=== PATIENT | male | born 1985 | race Caucasian/White ===

== ENCOUNTER 2021-05-29 10:14 | Emergency (ER) | payer OTHER, SELFPAY ==
[2021-05-29 10:26] VITALS: BP 113/77; PULSE 62; RESP 14; TEMP 36.9; O2SAT 99
--- NOTE | 2021-05-29 11:01 | ED.NAVMDI ---
HPI - Nausea/Vomiting/Diarrhea General Chief complaint: Nausea/Vomiting/Diarrhea Stated complaint: Vomiting/Diarrhea Source: patient and RN notes reviewed Mode of arrival: ambulatory Limitations: no limitations History of Present Illness HPI Narrative: Kp is a 35-year-old male patient who ambulated into the [facility]. Patient states he vomited in the middle of the night and has had diarrhea one time. Patient states there is no one else sick in his family. Patient denies any fever, abdominal pain, or any other symptoms. Patient states his work is requiring a note to return. Related Data Home Medications Medication Instructions Recorded Confirmed No Home Medications 05/29/21 05/29/21 Allergies Allergy/AdvReac Type Severity Reaction Status Date / Time No Known Allergies Allergy Verified 05/29/21 10:49 Review of Systems Review of Systems: CONSTITUTIONAL: Denies body aches, fever, chills, or sweats. EYES: Denies visual changes, redness, or discharge. ENT: Denies rhinorrhea, congestion, sore throat, or otalgia. CARDIOVASCULAR: Denies chest pain, palpitations, or edema. RESPIRATORY: Denies cough or dyspnea. GASTROINTESTINAL: Denies abdominal pain, +nausea,+ vomiting, + diarrhea. GENITOURINARY: Denies dysuria or hematuria. SKIN: Denies rash, itching, or wounds. MUSCULOSKELETAL: Denies back pain, joint pain, or myalgia. NEUROLOGIC: Denies headache, numbness, tingling, or weakness. PSYCH: Denies depression or anxiety. All systems reviewed & are unremarkable except as noted in HPI and below PMFSH Comments At time of signature, I have reviewed and agree with nursing past medical, surgical, social and family history unless otherwise noted. Please see nursing chart for further information. There is no relevant family history pertinent to the presenting complaint Exam Narrative: GENERAL: Well-appearing, well-nourished, and in no acute distress. HEAD: Normocephalic, atraumatic. EYES: EOMI. No redness or drainage. Conjunctivae normal. ENT: Mucous membranes pink and moist. Nares clear. No rhinorrhea. . NECK: Normal AROM. Supple. ABDOMEN: Soft, nontender, nondistended, normal active bowel sounds.NO reboud tenderenss or pain with palpation MUSCULOSKELETAL: No bony tenderness. EXTREMITIES: Normal range of motion. No edema. SKIN: Warm, dry, no rash. Capillary refill normal. Normal skin turgor. NEURO: No focal deficits. Alert and oriented x3. Gait steady. PSYCH: Normal affect. No signs of depression or anxiety. Course Vital Signs Vital signs: Vital Signs Temperature 36.9 C 05/29/21 10:26 Pulse Rate 62 05/29/21 10:26 Respiratory Rate 14 05/29/21 10:26 Blood Pressure 113/77 05/29/21 10:26 Pulse Oximetry 99 05/29/21 10:26 Temperature 36.9 C 05/29/21 10:26 Pulse Rate 62 05/29/21 10:26 Respiratory Rate 14 05/29/21 10:26 Blood Pressure 113/77 05/29/21 10:26 Pulse Oximetry 99 05/29/21 10:26 Reviewed MDM - Nausea/Vomiting/Diarrhea MDM Narrative Medical decision making narrative: Patient has had 2 episodes of vomiting, one episode of diarrhea, no fever no other symptoms. No abdominal pain no one else is sick in his family. Patient was instructed to follow the brat diet, push fluids, follow-up with his primary care doctor in 3 to 5 days for continued symptoms. Go to the emergency department immediately for severe abdominal pain or fever. Patient states he has nausea medication at home that he has not used. Differential Diagnosis Differential diagnosis: Likely food poisoning, gastroenteritis and dehydration Critical Care Time Critical Care Time Critical Care Time: No Discharge Plan Discharge Clinical Impression: Gastroenteritis Patient Disposition: Home, Self-Care Condition: Stable Instructions: Antibiotic Form, Acute Nausea and Vomiting (ED) Additional Instructions: Push fluids. Follow the brat diet. Avoid spicy foods for the next 24 to 48 hours. Foll
== END 2021-05-29 11:13 | disposition home or self-care (01) ==
PROVIDERS: Emergency Provider Nurse Practitioner Family
DX: K52.9 Noninfective gastroenteritis and colitis, unspecified (principal)
CPT/HCPCS: 99211; G0463